=== PATIENT | male | born 1975 | race Caucasian/White ===

== ENCOUNTER 2023-10-05 11:30 | Emergency (ER) | payer SELFPAY ==
[2023-10-05 11:31] VITALS: BP 136/96; PULSE 91; RESP 20; TEMP 36.4; O2SAT 98
--- NOTE | 2023-10-05 11:56 | ED.WOUNDLAC ---
HPI - Wound/Laceration General Chief Complaint: Wound/Laceration Stated Complaint: right upper thigh infection Time Seen by Provider: 10/05/23 11:45 Source: patient Mode of arrival: ambulatory Limitations: no limitations History of Present Illness HPI narrative: patient is a 47-year-old male with significant past medical history presents today with a wound to his right inner thigh. His wound 2 is rare thigh that started off with a drill bit going to his leg. He waited because he did think it was that bad that he got infected and burst open his abscess. He then went to urgent care antibiotics he got Bactrim. While taking the Bactrim may start to get worse and he him was to no other urgent care was told to put Neosporin on it with a Band-Aid. He just finished Bactrim about 3 days ago. Onset (ago): week(s) Location: other Extremity Location: Right: thigh Place: home Patient tetanus UTD: Yes Context: accidental Associated symptoms: pain Treatments prior to arrival: cold therapy Related Data Home Medications Medication Instructions Recorded Confirmed omeprazole 40 mg DAILY 10/05/23 10/05/23 Allergies Allergy/AdvReac Type Severity Reaction Status Date / Time No Known Allergies Allergy Verified 10/05/23 11:43 Review of Systems Review of Systems: ROS unobtainable: Yes unobtainable due to endotracheal tube Constitutional: Constitutional: Reports as per HPI Eyes: Eyes: Reports no additional eye complaints ENT: Reports system reviewed and no additional complaints, except as documented Cardiovascular: Cardiovascular: Reports no additional cardiovascular complaints Respiratory: Respiratory: Reports no additional respiratory complaints Gastrointestinal: Gastrointestinal: Reports no additional gastrointestinal complaints Genitourinary: Genitourinary: Reports no additional male genitourinary complaints Musculoskeletal: Musculoskeletal: Reports no additional musculoskeletal complaints Integumentary/Breasts: Skin/Breast: Reports skin ulcer Psychiatric: Psychiatric: Reports no additional psychiatric complaints Endocrine: Endocrine: Reports no additional endocrine complaints Hematologic/Lymphatic: Hematologic/Lymphatic: Reports no additional hematologic/lymphatic complaints Allergic/Immunologic: Allergic/Immunologic: Reports no additional allergic/immunologic complaints Exam Const: General: healthy appearing Nutritional Appearance: well nourished Orientation/consciousness: patient oriented x3 HENMT: Head: normal to inspection Ears: external ears normal Face/Nose/Sinus: Normal external nose present Face and sinus: normal facial exam Eyes: Conjunctivae: conjunctivae normal Pupils: Equal, round and reactive pupils present Neck: Neck: normal visual inspection Chest: Chest palpation & inspection: normal inspection of the chest Resp: Effort & Inspection: normal respiratory effort Auscultation: clear to auscultation bilaterally Cardio: Rate: regular rate Rhythm: regular rhythm GI: GI Palp: Yes Soft to palpation Back/Spine/Pelvis: Back: no CVA tenderness Skin: General skin exam: normal color Rashes: no rashes Neuro: General: patient oriented x3 Cranial nerves: Yes Nystagmus not present Speech: normal speech Extrem: General: normal to inspection Psych: Mental Status: mental status grossly normal Course Vital Signs Vital signs: Vital Signs Temperature 97.5 F L 10/05/23 11:31 Pulse Rate 91 10/05/23 11:31 Respiratory Rate 20 10/05/23 11:31 Blood Pressure 136/96 H 10/05/23 11:31 Pulse Oximetry 98 10/05/23 11:31 Oxygen Delivery Room Air 10/05/23 11:31 Temperature 97.5 F L 10/05/23 11:31 Pulse Rate 91 10/05/23 11:31 Respiratory Rate 20 10/05/23 11:31 Blood Pressure 136/96 H 10/05/23 11:31 Pulse Oximetry 98 10/05/23 11:31 Oxygen Delivery Room Air 10/05/23 11:31 MDM - Wound/Laceration MDM Narrative Medical decision making narrative: Tami lucas
--- NOTE | 2023-10-05 12:23 | PC.NURSE ---
Pt to desk asking if he is ok to leave. Pt informed that discharge papers are not ready yet. Pt states that he is supposed to be getting an antibiotic. Pt again informed that RN has not seen discharge papers, so I cannot confirm any new Px at this time. Pt informed he could wait in his room or the waiting room and RN will bring papers to him as soon as they are available. Pt keeps repeating I'm getting an antibiotic and asking if he can leave. RN informed Pt he can leave any time he wishes, but I am unable to review discharge instructions with him at this time as I do not have the papers yet. Pt states that he is going to leave.
== END 2023-10-05 12:30 | disposition home or self-care (01) ==
LOC: CHSED 12:14
PROVIDERS: Emergency Provider Family Medicine
DX: S71.111D Laceration without foreign body, right thigh, subsequent encounter (principal); W27.8XXA Contact with other nonpowered hand tool, initial encounter
CPT/HCPCS: 99283